=== PATIENT | male | born 1985 | race Caucasian/White ===

== ENCOUNTER 2021-11-12 14:01 | Emergency (ER) | payer SELFPAY ==
[~2021-11-12] VITALS: Ht 172.7 cm; Wt 114.0 kg
[2021-11-12 14:36] LABS: BILIRUBIN,URINE NEGATIVE (NEGATIVE); CLARITY,URINE CLEAR; COLOR,URINE YELLOW; GLUCOSE, URINE (UA) NEGATIVE (NEGATIVE); KETONES,URINE NEGATIVE (NEGATIVE); LEUKOCYTE ESTERASE ,URINE NEGATIVE (NEGATIVE); NITRITE,URINE NEGATIVE (NEGATIVE); PROTEIN,URINE NEGATIVE (NEGATIVE)
[2021-11-12 14:55] LABS: BACTERIA,URINE NEGATIVE /HPF; RBC,URINE 0-2 /HPF; WBC,URINE RARE /HPF
[2021-11-12] MEDS ORDERED: ONDANSETRON 4 MG/2 ML (SDV) Z0FRAN IVP ONE ×2 (15:00→17:00)
[2021-11-12] MEDS ORDERED: fentaNYL INJ 100 MCG/2 ML AMP IVP ONE ×2 (15:00→16:45)
--- NOTE | 2021-11-12 15:18 | Diagnostic Imaging Report ---
EXAMINATION: ABDOMEN/KUB 1VIEW. INDICATION: Flank pain, kidney stone suspected. COMPARISON: None available. TECHNIQUE: AP view of the abdomen. FINDINGS: There is a 6 mm mineralized focus located along the expected course of the mid left ureter just to the left of the L4 vertebral body. No other abnormal soft tissue mineralizations. Nonobstructed bowel gas patterns. A small amount of stool in the ascending colon is likely physiologic. Normal regional skeleton. IMPRESSION: There is a 6 mm mineralization along the expected course of the left ureter which could represent a ureteral stone. Consider CT of the abdomen and pelvis without contrast for further assessment, as deemed clinically indicated. Dictated by: Dictated on workstation # [id number]
--- NOTE | 2021-11-12 15:26 | Diagnostic Imaging Report ---
PROCEDURE: CT urinary tract, rule out kidney stone. TECHNIQUE: Multiple contiguous axial images were obtained through the abdomen and pelvis without the use of intravenous contrast. Auto Exposure Controls were utilized during the CT exam to meet ALARA standards for radiation dose reduction. INDICATION: Left flank pain. Patient does have history of kidney stones. COMPARISON: No prior studies are available for comparison. FINDINGS: Lung bases are clear. The liver and gallbladder are unremarkable. No biliary ductal dilatation is seen. The pancreas and spleen are unremarkable. No adrenal mass is detected. The right kidney is unremarkable. Left kidney is enlarged. There is a moderate left-sided hydroureteronephrosis. There is a stone in the proximal left ureter measuring 7 mm. The ureter distal to this level is normal in caliber. No bladder calculi are seen. Aorta is nonaneurysmal. The small and large bowel loops are normal in caliber. There is no free fluid or fluid collection. The prostate is unremarkable. IMPRESSION: 7 mm proximal left ureteric calculus producing moderate hydroureteronephrosis and left renal enlargement. Dictated by: Dictated on workstation # [id number]
[2021-11-12 15:43] LABS: BASOPHILS # (AUTO) 0.1 10^3/uL (0.0-0.1); BASOPHILS % (AUTO) 1 % (0-10); EOSINOPHILS # (AUTO) 0.1 10^3/uL (0.0-0.3); EOSINOPHILS % (AUTO) 1 % (0-10); HEMATOCRIT 51 % (40-54); HEMOGLOBIN 16.9 g/dL (13.3-17.7); LYMPHOCYTES # (AUTO) 1.9 X 10^3 (1.0-4.0); LYMPHOCYTES % (AUTO) 17 % (12-44); MEAN CORPUSCULAR HEMOGLOBIN 29 pg (25-34); MEAN CORPUSCULAR HGB CONC 33 g/dL (32-36); MEAN CORPUSCULAR VOLUME 88 fL (80-99); MEAN PLATELET VOLUME 10.4 fL (9.0-12.2); MONOCYTES # (AUTO) 0.9 X 10^3 (0.0-1.0); MONOCYTES % (AUTO) 8 % (0-12); NEUTROPHILS % (AUTO) 73 % (42-75); PLATELET COUNT 216 10^3/uL (130-400)
[2021-11-12 15:50] LABS: POTASSIUM 4.4 MMOL/L (3.6-5.0)
[2021-11-12 15:52] LABS: TOTAL PROTEIN 7.6 GM/DL (6.4-8.2)
[2021-11-12 15:54] LABS: BILIRUBIN,TOTAL 0.5 MG/DL (0.1-1.0)
[2021-11-12 15:56] LABS: CREATININE SERUM 1.88 MG/DL (0.60-1.30)
--- NOTE | 2021-11-12 16:02 | ED GU-Male ---
General Chief Complaint: - Reproductive Stated Complaint: BACK/ABD PAIN, N/V, KIDNEY STONES Nursing Triage Note: pt ambulatory to room with pt . pt states he was seen at [facility] on thursday and was diagnosed with a kidney stone. pt states he was sent home with instruction to follow up with urology and has not been able to do so yet. pt was also sent home with nausea and pain meds but he has not been taking them because he states he cannot keep them down. pt is complaining of increasing pain, LLQ pain and vomiting Source: patient Exam Limitations: no limitations History of Present Illness Date Seen by Provider: November 12, 2021 Time Seen by Provider: 15:47 Initial Comments This is a well-appearing 36-year-old male who presented to the ER via POV with his spouse for complaints of left-sided flank pain for the past 3 days. States that he was evaluated and treated at [facility] this past Thursday, he was diagnosed with a 8 mm left kidney stone at that time. States that he was placed on Flomax, Hydrocodone, Zofran, and Naproxen at that time. He was instructed to follow-up with urology in the next few days however if his symptoms worsened he was to present to the ER again. States today he is having difficulty urinating and is only able to dribble small amounts at a time. Also states that he is having persistent pain and is no longer able to keep down his hydrocodone. Denies fever, chills, cough, shortness of breath, chest pain, or diarrhea. Allergies and Home Medications Allergies Coded Allergies: No Known Drug Allergies (Unverified , 11/12/21) Patient Home Medication List Home Medication List Reviewed: Yes Review of Systems Review of Systems Constitutional: see HPI EENTM: no symptoms reported Respiratory: no symptoms reported Cardiovascular: no symptoms reported Gastrointestinal: see HPI Genitourinary: see HPI Musculoskeletal: no symptoms reported Skin: no symptoms reported Psychiatric/Neurological: No Symptoms Reported Endocrine: No Symptoms Reported Hematologic/Lymphatic: No Symptoms Reported Physical Exam Vital Signs Vital Signs - First Documented 11/12/21 14:30 Temp 36.6 Pulse 88 Resp 16 B/P (MAP) 139/95 (110) Pulse Ox 98 Capillary Refill : Height, Weight, BMI Height: '" Weight: lbs. oz. kg; 38.00 BMI Method: General Appearance: WD/WN, no apparent distress HEENT: PERRL/EOMI, normal ENT inspection, TMs normal, pharynx normal Neck: full range of motion, normal inspection Cardiovascular: regular rate, rhythm, no murmur Respiratory: lungs clear, normal breath sounds, no respiratory distress, no accessory muscle use Gastrointestinal: normal bowel sounds, non tender, soft Back: normal inspection, CVA tenderness (L) Extremities: normal range of motion, non-tender, normal inspection Neurologic/Psychiatric: no motor/sensory deficits, alert, normal mood/affect Skin: normal color, warm/dry Progress/Results/Core Measures Suspected Sepsis SIRS Temperature: Pulse: 88 Respiratory Rate: 16 Laboratory Tests 11/12/21 14:42: White Blood Count 11.0 Blood Pressure 139 /95 Mean: 110 Laboratory Tests 11/12/21 14:42: Creatinine 1.88H, Platelet Count 216, Total Bilirubin 0.5 Results/Orders Lab Results Laboratory Tests Test 11/12/21 14:27 11/12/21 14:42 Range/Units Urine Color YELLOW Urine Clarity CLEAR Urine pH 7.0 5-9 Urine Specific Palmer 1.010 L 1.016-1.022 Urine Protein NEGATIVE NEGATIVE Urine Glucose (UA) NEGATIVE NEGATIVE Urine Ketones NEGATIVE NEGATIVE Urine Nitrite NEGATIVE NEGATIVE Urine Bilirubin NEGATIVE NEGATIVE Urine Urobilinogen 0.2 < = 1.0 MG/DL Urine Leukocyte Esterase NEGATIVE NEGATIVE Urine RBC (Auto) 2+ H NEGATIVE Urine RBC 0-2 /HPF Urine WBC RARE /HPF Urine Crystals NONE /LPF Urine Bacteria NEGATIVE /HPF Urine Casts NONE /LPF Urine Mucus NEGATIVE /LPF Urine Culture Indicated NO White Blood Count 11.0 4.3-11.0 10^3/uL Red Blood Count 5.77 H 4.30-5.52 10^6/uL Hemoglobin 16.9 13.3-17.7 g/dL Hematocrit 51 40-54 % Mean Corpuscular Volume 88 80-99 fL Mean Corpuscular Hemoglobin 29 25-34 pg Mean Corpuscular Hemoglobin Concent 33 32-36 g/dL Red Cell Distribution Width 12.7 10.0-14.5 % Platelet Count 216 130-400 10^3/uL Mean Platelet Volume 10.4 9.0-12.2 fL Immature Granulocyte % (Auto) 1 % Neutrophils (%) (Auto) 73 42-75 % Lymphocytes (%) (Auto) 17 12-44 % Monocytes (%) (Auto) 8 0-12 % Eosinophils (%) (Auto) 1 0-10 % Basophils (%) (Auto) 1 0-10 % Neutrophils # (Auto) 8.0 H 1.8-7.8 X 10^3 Lymphocytes # (Auto) 1.9 1.0-4.0 X 10^3 Monocytes # (Auto) 0.9 0.0-1.0 X 10^3 Eosinophils # (Auto) 0.1 0.0-0.3 10^3/uL Basophils # (Auto) 0.1 0.0-0.1 10^3/uL Immature Granulocyte # (Auto) 0.1 0.0-0.1 10^3/uL Sodium Level 139 135-145 MMOL/L Potassium Level 4.4 3.6-5.0 MMOL/L Chloride Level 102 98-107 MMOL/L Carbon Dioxide Level 27 21-32 MMOL/L Anion Gap 10 5-14 MMOL/L Blood Urea Nitrogen 9 7-18 MG/DL Creatinine 1.88 H 0.60-1.30 MG/DL Estimat Glomerular Filtration Rate 47 BUN/Creatinine Ratio 5 Glucose Level 101 70-105 MG/DL Calcium Level 9.0 8.5-10.1 MG/DL Corrected Calcium 9.0 8.5-10.1 MG/DL Total Bilirubin 0.5 0.1-1.0 MG/DL Aspartate Amino Transf (AST/SGOT) 25 5-34 U/L Alanine Aminotransferase (ALT/SGPT) 23 0-55 U/L Alkaline Phosphatase 83 40-136 U/L Total Protein 7.6 6.4-8.2 GM/DL Albumin 4.0 3.2-4.5 GM/DL My Orders Orders - ISA VIERA APRN Ua Culture If Indicated (11/12/21 14:03) Ct Abd/Pelvis Wo(Kidney Stone) (11/12/21 14:44) Abdomen/Kub 1view (11/12/21 14:44) Ed Iv/Invasive Line Start (11/12/21 14:44) Ondansetron Injection (Zofran Injectio (11/12/21 15:00) Fentanyl Inj (Sublimaze Injection) (11/12/21 15:00) Cbc With Automated Diff (11/12/21 15:37) Comprehensive Metabolic Panel (11/12/21 15:37) Post Void Residual Assessment (11/12/21 16:23) Medications Given in ED Current Medications Medications Dose Ordered Sig/Zoraida Route Start Time Stop Time Status Last Admin Dose Admin Fentanyl Citrate 50 mcg ONCE ONCE IVP 11/12/21 15:00 11/12/21 15:01 DC 11/12/21 15:21 50 MCG Ondansetron HCl 4 mg ONCE ONCE IVP 11/12/21 15:00 11/12/21 15:01 DC 11/12/21 15:21 4 MG Vital Signs/I&O 11/12/21 14:30 Temp 36.6 Pulse 88 Resp 16 B/P (MAP) 139/95 (110) Pulse Ox 98 Capillary Refill : Blood Pressure Mean: 110 Diagnostic Imaging Diagonstic Imaging: Xray Comments [facility] [place] [place] NAME: DANIELLE MCDONALD MED REC#: [id number] PT STATUS: REG ER : 1985 PHYSICIAN: ISA VIERA [employer]ER ADMIT DATE: 11/12/21/ER Draft Date of Exam:11/12/21 ABDOMEN/KUB 1VIEW EXAMINATION: ABDOMEN/KUB 1VIEW. INDICATION: Flank pain, kidney stone suspected. COMPARISON: None available. TECHNIQUE: AP view of the abdomen. FINDINGS: There is a 6 mm mineralized focus located along the expected course of the mid left ureter just to the left of the L4 vertebral body. No other abnormal soft tissue mineralizations. Nonobstructed bowel gas patterns. A small amount of stool in the ascending colon is likely physiologic. Normal regional skeleton. IMPRESSION: There is a 6 mm mineralization along the expected course of the left ureter which could represent a ureteral stone. Consider CT of the abdomen and pelvis without contrast for further assessment, as deemed clinically indicated. Dictated on workstation # [id number] Dict: 11/12/21 1509 Trans: 11/12/21 1517 [id number] Interpreted by: BJORN KOENIG MD Electronically signed by: Joseph [facility] [place] [place] NAME: DANIELLE MCDONALD MED REC#: [id number] PT STATUS: REG ER : 1985 PHYSICIAN: ISA VIERA [employer] ADMIT DATE: 11/12/21/ER Signed Date of Exam:11/12/21 CT ABD/PELVIS WO(KIDNEY STONE) PROCEDURE: CT urinary tract, rule out kidney stone. TECHNIQUE: Multiple contiguous axial images were obtained through the abdomen and pelvis without the use of intravenous contrast. Auto Exposure Controls were utilized during the CT exam to meet ALARA standards for radiation dose reduction. INDICATION: Left flank pain. Patient does have history of kidney stones. COMPARISON: No prior studies are available for comparison. FINDINGS: Lung bases are clear. The liver and gallbladder are unremarkable. No biliary ductal dilatation is seen. The pancreas and spleen are unremarkable. No adrenal mass is detected. The right kidney is unremarkable. Left kidney is enlarged. There is a moderate left-sided hydroureteronephrosis. There is a stone in the proximal left ureter measuring 7 mm. The ureter distal to this level is normal in caliber. No bladder calculi are seen. Aorta is nonaneurysmal. The small and large bowel loops are normal in caliber. There is no free fluid or fluid collection. The prostate is unremarkable. IMPRESSION: 7 mm proximal left ureteric calculus producing moderate hydroureteronephrosis and left renal enlargement. Dictated by: Dictated on workstation # [id number] Dict: 11/12/21 1519 Trans: 11/12/21 1557 [id number] Interpreted by: EDD MONET MD Electronically signed by: EDD MONET MD 11/12/21 1557 Departure Impression Primary Impression: Left ureteral calculus Additional Impression: Hydronephrosis of left kidney Disposition: XF SHT-TRM HOSP Condition: Stable Transfer Transfer Reason: Exceeds level of care (No urology services ) Transfer Facility: [facility] Method of Transfer: EMS Departure-Patient Inst. Decision time for Depature: 16:31 Referrals: [facility] (PCP) Primary Care Physician BEATRICE FISHER DO (Family) Primary Care Physician Patient Instructions: Kidney Stone, Adult ED Add. Discharge Instructions: Plan: 1. Follow up with Urology. Your phone number was given to Urology at [facility]. Call to schedule appointment. 2. Drink plenty of fluids to pass your stone. 3. Continue your home medications. 4. Return for any new, concerning, or worsening symptoms. All discharge instructions reviewed with patient and/or family. Voiced understanding. ISA VIERA [employer]ER November 12, 2021 16:02
[2021-11-12 17:20] VITALS: BP 135/91
== END 2021-11-12 17:25 | disposition short-term general hospital (02) ==
LOC: ER 14:04
DX: N13.2 Hydronephrosis with renal and ureteral calculous obstruction (principal)
CPT/HCPCS: 36415; 74018; 74176; 80053; 81000; 85025

== ENCOUNTER 2022-01-09 22:12 | Emergency (ER) | payer BC ==
[~2022-01-09] VITALS: Ht 170.1 cm; Wt 112.4 kg
--- NOTE | 2022-01-09 22:35 | ED General ---
General Chief Complaint: - Reproductive Stated Complaint: PAIN LEFT KIDNEY History of Present Illness Date Seen by Provider: Jan 09, 2022 Time Seen by Provider: 22:35 Initial Comments 36-year-old male with past medical history of HTN/kidney stones for which he just had a ureteroscopy with stent placement and stone removal this past Thursday, is here with complaints of sudden onset of pain in his left lower quadrant and suprapubic area today evening. Patient had dinner at [employer] and that was his last meal. Denies fever, chest pain, palpitation, diaphoresis, diarrhea, headache, dizziness. Patient had associated nausea and vomiting. In the ER patient's pain has subsided and is not as severe. Denies any trauma or injury. Patient is on hydromorphone every 4 hours as needed for pain post procedure. Patient has not been drinking much water and states that his urine is very dark in color. Allergies and Home Medications Allergies Coded Allergies: No Known Drug Allergies (Unverified , 11/12/21) Patient Home Medication List Home Medication List Reviewed: Yes Review of Systems Review of Systems Constitutional: no symptoms reported EENTM: no symptoms reported Respiratory: no symptoms reported Cardiovascular: no symptoms reported Gastrointestinal: LLQ, nausea, other (suprapubic pain) Genitourinary: hematuria Musculoskeletal: no symptoms reported Skin: no symptoms reported Psychiatric/Neurological: No Symptoms Reported Hematologic/Lymphatic: No Symptoms Reported Immunological/Allergic: no symptoms reported Past Nsjhevm-Uxjlsy-Tjzqxp Hx Patient Social History Tobacco Use?: Yes Tobacco type used: Cigarettes Smoking Status: Current Everyday Smoker Use of E-Cig and/or Vaping dev: No Substance use?: No Alcohol Use?: No Pt feels they are or have been: No Immunizations Up To Date Influenza Vaccine Up-to-Date: No; Not Current Physical Exam Vital Signs Vital Signs - First Documented 01/09/22 22:26 Temp 37.2 Pulse 82 Resp 18 B/P (MAP) 144/99 (114) Pulse Ox 98 O2 Delivery Room Air Capillary Refill : Height, Weight, BMI Height: '" Weight: lbs. oz. kg; 38.00 BMI Method: General Appearance: No Apparent Distress, WD/WN HEENT: PERRL/EOMI Neck: Full Range of Motion Respiratory: Lungs Clear, Normal Breath Sounds, No Accessory Muscle Use Gastrointestinal: Normal Bowel Sounds, No Organomegaly, Soft, Distended (slightly), Tenderness (in suprapubic area and LLQ) Back: Normal Inspection, No CVA Tenderness, No Vertebral Tenderness Neurologic/Psychiatric: Alert, Oriented x3, No Motor/Sensory Deficits, Normal Mood/Affect Progress/Results/Core Measures Suspected Sepsis SIRS Temperature: Pulse: Respiratory Rate: Laboratory Tests 01/09/22 23:00: White Blood Count 12.1H Blood Pressure / Mean: Laboratory Tests 01/09/22 23:00: Creatinine 1.22, Platelet Count 237, Total Bilirubin 0.4 Results/Orders Lab Results Laboratory Tests Test 01/09/22 22:24 01/09/22 23:00 Range/Units Urine Color BROWN H Urine Clarity CLOUDY Urine pH 6.5 5-9 Urine Specific Stella >=1.030 1.016-1.022 Urine Protein 3+ H NEGATIVE Urine Glucose (UA) NEGATIVE NEGATIVE Urine Ketones NEGATIVE NEGATIVE Urine Nitrite NEGATIVE NEGATIVE Urine Bilirubin 1+ H NEGATIVE Urine Urobilinogen 1.0 < = 1.0 MG/DL Urine Leukocyte Esterase 2+ H NEGATIVE Urine RBC (Auto) 3+ H NEGATIVE Urine RBC TNTC H /HPF Urine WBC 10-25 H /HPF Urine Squamous Epithelial Cells RARE /HPF Urine Crystals PRESENT H /LPF Urine Calcium Oxalate Crystals RARE H /LPF Urine Bacteria FEW H /HPF Urine Casts NONE /LPF Urine Mucus NEGATIVE /LPF Urine Culture Indicated YES Urine Opiates Screen POSITIVE H NEGATIVE Urine Oxycodone Screen NEGATIVE NEGATIVE Urine Methadone Screen NEGATIVE NEGATIVE Urine Propoxyphene Screen NEGATIVE NEGATIVE Urine Barbiturates Screen NEGATIVE NEGATIVE Ur Tricyclic Antidepressants Screen NEGATIVE NEGATIVE Urine Phencyclidine Screen NEGATIVE NEGATIVE Urine Amphetamines Screen NEGATIVE NEGATIVE Urine Methamphetamines Screen NEGATIVE NEGATIVE Urine Benzodiazepines Screen NEGATIVE NEGATIVE Urine Cocaine Screen NEGATIVE NEGATIVE Urine Cannabinoids Screen NEGATIVE NEGATIVE White Blood Count 12.1 H 4.3-11.0 10^3/uL Red Blood Count 5.61 H 4.30-5.52 10^6/uL Hemoglobin 16.4 13.3-17.7 g/dL Hematocrit 48 40-54 % Mean Corpuscular Volume 85 80-99 fL Mean Corpuscular Hemoglobin 29 25-34 pg Mean Corpuscular Hemoglobin Concent 34 32-36 g/dL Red Cell Distribution Width 13.1 10.0-14.5 % Platelet Count 237 130-400 10^3/uL Mean Platelet Volume 9.7 9.0-12.2 fL Immature Granulocyte % (Auto) 1 % Neutrophils (%) (Auto) 60 42-75 % Lymphocytes (%) (Auto) 31 12-44 % Monocytes (%) (Auto) 6 0-12 % Eosinophils (%) (Auto) 2 0-10 % Basophils (%) (Auto) 1 0-10 % Neutrophils # (Auto) 7.3 1.8-7.8 10^3/uL Lymphocytes # (Auto) 3.7 1.0-4.0 10^3/uL Monocytes # (Auto) 0.7 0.0-1.0 10^3/uL Eosinophils # (Auto) 0.2 0.0-0.3 10^3/uL Basophils # (Auto) 0.1 0.0-0.1 10^3/uL Immature Granulocyte # (Auto) 0.1 0.0-0.1 10^3/uL Sodium Level 139 135-145 MMOL/L Potassium Level 3.6 3.6-5.0 MMOL/L Chloride Level 102 98-107 MMOL/L Carbon Dioxide Level 24 21-32 MMOL/L Anion Gap 13 5-14 MMOL/L Blood Urea Nitrogen 14 7-18 MG/DL Creatinine 1.22 0.60-1.30 MG/DL Estimat Glomerular Filtration Rate 79 BUN/Creatinine Ratio 11 Glucose Level 124 H 70-105 MG/DL Calcium Level 8.9 8.5-10.1 MG/DL Corrected Calcium 9.1 8.5-10.1 MG/DL Magnesium Level 2.0 1.6-2.4 MG/DL Total Bilirubin 0.4 0.1-1.0 MG/DL Aspartate Amino Transf (AST/SGOT) 17 5-34 U/L Alanine Aminotransferase (ALT/SGPT) 23 0-55 U/L Alkaline Phosphatase 77 40-136 U/L Total Protein 7.0 6.4-8.2 GM/DL Albumin 3.8 3.2-4.5 GM/DL My Orders Orders - STEPHON TRUONG MD Cbc With Automated Diff (01/09/22 22:46) Comprehensive Metabolic Panel (01/09/22 22:46) Drug Screen Stat (Urine) (01/09/22 22:46) Magnesium (01/09/22 22:46) Ua Culture If Indicated (01/09/22 22:46) Ct Abdomen/Pelvis Wo (01/09/22 22:46) Ketorolac Injection (Toradol Injection) (01/09/22 22:47) Ed Iv/Invasive Line Start (01/09/22 22:47) Ns Iv 1000 Ml (Sodium Chloride 0.9%) (01/09/22 23:00) Urine Culture (01/09/22 22:24) Vital Signs/I&O 01/09/22 22:26 Temp 37.2 Pulse 82 Resp 18 B/P (MAP) 144/99 (114) Pulse Ox 98 O2 Delivery Room Air Capillary Refill : Progress Note : Progress Note 1. ACUTE CYSTITIS : - CT ABD: Left ureteral stent is in place. The left ureter is minimally dilated with inflammatory changes. No stone is identified. This may be post surgical inflammation or infection. - UA is positive for leukocyte esterase, WBCs, and bacteria - WBC is 12.1 - CMP normal - NS IVF bolus STAT - Toradol 15mg - Ceftriaxone 1gm iv STAT - Prescription given for Cefpodoxime 100mg bid for 7 days - Advised pt to call his Urologist at [place] first thing in the morning. -The patient was seen in the ED, and treated appropriately to presentation at a specific point in time. Patient is informed that there is a possibility that disease and illness can evolve and change in acuity rapidly or slowly after patient is discharged from the ER. Precautionary advice given to the patient for immediate return to ER if symptoms worsen or do not resolve, and to seek emergency care sooner rather than later. Pt also advised on the importance of PCP follow up and compliance with management and follow up plan with PCP and/or specialist, as this is part of the management plan. Pt verbally expressed understanding. Departure Impression Primary Impression: Acute cystitis with hematuria Disposition: HOME, SELF-CARE Condition: Improved Departure-Patient Inst. Referrals: [facility] (PCP) Primary Care Physician BEATRICE FISHER DO (Family) Primary Care Physician Patient Instructions: Urinary Tract Infection, Adult (DC) Add. Discharge Instructions: - Prescription given for Cefpodoxime 100mg bid for 7 days - Call Urology clinic in the morning for appointment All discharge instructions reviewed with patient and/or family. Voiced understanding. Scripts Cefpodoxime Proxetil (Cefpodoxime Proxetil) 100 Mg Tablet 100 MG PO BID for 7 Days, #14 TAB Prov: STEPHON TRUONG MD 01/10/22 STEPHON TRUONG MD Jan 09, 2022 22:35
[2022-01-09] MEDS ORDERED: KETOROLAC 30 MG/ML VIAL IVP STA (22:47)
[2022-01-09 22:59] LABS: BILIRUBIN,URINE 1+ (NEGATIVE); CLARITY,URINE CLOUDY; COLOR,URINE BROWN; GLUCOSE, URINE (UA) NEGATIVE (NEGATIVE); KETONES,URINE NEGATIVE (NEGATIVE); LEUKOCYTE ESTERASE ,URINE 2+ (NEGATIVE); NITRITE,URINE NEGATIVE (NEGATIVE); PH,URINE 6.5 (5-9); PROTEIN,URINE 3+ (NEGATIVE)
[2022-01-09] MEDS ORDERED: NS IV 1000 ML 1,000 ML IV SCH (23:00)
[2022-01-09 23:09] LABS: BASOPHILS # (AUTO) 0.1 10^3/uL (0.0-0.1); BASOPHILS % (AUTO) 1 % (0-10); EOSINOPHILS # (AUTO) 0.2 10^3/uL (0.0-0.3); EOSINOPHILS % (AUTO) 2 % (0-10); HEMATOCRIT 48 % (40-54); HEMOGLOBIN 16.4 g/dL (13.3-17.7); LYMPHOCYTES # (AUTO) 3.7 10^3/uL (1.0-4.0); LYMPHOCYTES % (AUTO) 31 % (12-44); MEAN CORPUSCULAR HEMOGLOBIN 29 pg (25-34); MEAN CORPUSCULAR HGB CONC 34 g/dL (32-36); MEAN CORPUSCULAR VOLUME 85 fL (80-99); MEAN PLATELET VOLUME 9.7 fL (9.0-12.2); MONOCYTES # (AUTO) 0.7 10^3/uL (0.0-1.0); MONOCYTES % (AUTO) 6 % (0-12); NEUTROPHILS # (AUTO) 7.3 10^3/uL (1.8-7.8); NEUTROPHILS % (AUTO) 60 % (42-75); PLATELET COUNT 237 10^3/uL (130-400); WHITE BLOOD COUNT 12.1 10^3/uL (4.3-11.0)
[2022-01-09 23:13] LABS: AMPHETAMINE SCREEN, URINE NEGATIVE (NEGATIVE); BARBITURATE SCREEN URINE NEGATIVE (NEGATIVE); BENZODIAZEPINES SCREEN URINE NEGATIVE (NEGATIVE); CANNABINOID SCREEN, URINE NEGATIVE (NEGATIVE); COCAINE SCREEN URINE NEGATIVE (NEGATIVE); METHADONE STAT NEGATIVE (NEGATIVE); OPIATE SCREEN URINE POSITIVE (NEGATIVE); OXYCODONE STAT NEGATIVE (NEGATIVE); PROPOXYPHENE STAT NEGATIVE (NEGATIVE); TRICYCLIC ANTIDEPRESSANTS SCRE NEGATIVE (NEGATIVE)
[2022-01-09 23:16] LABS: BACTERIA,URINE FEW /HPF; CALCIUM OXALATE CRYSTALS,UR RARE /LPF; RBC,URINE TNTC /HPF; SQUAMOUS EPITHELIAL CELL,UR RARE /HPF
[2022-01-09 23:18] LABS: ALBUMIN 3.8 GM/DL (3.2-4.5); POTASSIUM 3.6 MMOL/L (3.6-5.0)
[2022-01-09 23:20] LABS: CALCIUM 8.9 MG/DL (8.5-10.1)
[2022-01-09 23:23] LABS: BILIRUBIN,TOTAL 0.4 MG/DL (0.1-1.0)
[2022-01-09 23:24] LABS: CREATININE SERUM 1.22 MG/DL (0.60-1.30)
[2022-01-10] MEDS ORDERED: cefTRIAXone 1 GM PRE-MIX 50 ML IV STA (01:28)
[2022-01-10] MEDS ORDERED: cefTRIAXone 1 GM PRE-MIX 50 ML IV ONE (01:33)
[2022-01-10] MEDS ORDERED: CEFP100T2 PO (01:36)
[2022-01-10 01:37] VITALS: BP 131/88
--- NOTE | 2022-01-10 05:40 | Diagnostic Imaging Report ---
PROCEDURE: CT abdomen and pelvis without contrast. TECHNIQUE: Multiple contiguous axial images were obtained through the abdomen and pelvis without the use of intravenous contrast. Auto Exposure Controls were utilized during the CT exam to meet ALARA standards for radiation dose reduction. INDICATION: 36-year-old male with generalized abdominal pain, history of left ureteral stent. COMPARISONS: 11/12/2021 FINDINGS: Lung bases are essentially clear. Cardiac contour is normal. Liver shows uniform attenuation. Gallbladder is nondistended. Spleen and GE junction are normal. Stomach and duodenal sweep are unremarkable. Pancreas shows sharp margins. Adrenals are normal. Kidneys appear normal in size, position and contour. There is a double-J left ureteral stent. There is some minimal left ureteral stranding. Bladder is nondistended. Nonopacified loops of small bowel are unremarkable. Large bowel contains fecal material and gas. The appendix is surgically absent. Aortoiliac and femoral arteries show normal caliber. Bone windows show no overall gross abnormalities. IMPRESSION: 1. A double-J left ureteral stent noted. 2. There is no evidence of cholecystitis or obstructive uropathy. There is some stranding along the left ureter without hydroureter. No definite renal or ureteral calculi seen. 3. Appendix is surgically absent. No areas of peritoneal inflammation seen. Additional nonemergent findings as described above. Agree with [facility] report. Dictated by: Dictated on workstation # [id number]
== END 2022-01-10 01:45 | disposition home or self-care (01) ==
LOC: EDUNIT# 22:12 → ER 22:15
DX: N30.01 Acute cystitis with hematuria (principal); F17.210 Nicotine dependence, cigarettes, uncomplicated; Z87.442 Personal history of urinary calculi; Z96.0 Presence of urogenital implants; Z98.890 Other specified postprocedural states; Z28.310 Unvaccinated for COVID-19
CPT/HCPCS: 36415; 74176; 80053; 80306; 81000; 83735; 85025; 87088

== ENCOUNTER 2022-08-13 10:47 | Emergency (ER) | payer SELFPAY ==
[~2022-08-13] VITALS: Ht 172.7 cm; Wt 123.0 kg
[~2022-08-13 10:47] MED LIST: CEFP100T2 PO
[2022-08-13] MEDS ORDERED: ASPIRIN 81 MG CHEW (CHILDREN'S ASA) PO ONE (11:30)
[2022-08-13 11:35] LABS: BASOPHILS # (AUTO) 0.1 10^3/uL (0.0-0.1); BASOPHILS % (AUTO) 1 % (0-10); EOSINOPHILS # (AUTO) 0.1 10^3/uL (0.0-0.3); EOSINOPHILS % (AUTO) 1 % (0-10); HEMATOCRIT 51 % (40-54); HEMOGLOBIN 17.4 g/dL (13.3-17.7); LYMPHOCYTES # (AUTO) 3.3 10^3/uL (1.0-4.0); LYMPHOCYTES % (AUTO) 30 % (12-44); MEAN CORPUSCULAR HEMOGLOBIN 30 pg (25-34); MEAN CORPUSCULAR HGB CONC 35 g/dL (32-36); MEAN CORPUSCULAR VOLUME 86 fL (80-99); MEAN PLATELET VOLUME 9.8 fL (9.0-12.2); MONOCYTES # (AUTO) 0.7 10^3/uL (0.0-1.0); MONOCYTES % (AUTO) 7 % (0-12); NEUTROPHILS # (AUTO) 6.8 10^3/uL (1.8-7.8); NEUTROPHILS % (AUTO) 61 % (42-75); PLATELET COUNT 201 10^3/uL (130-400); WHITE BLOOD COUNT 11.1 10^3/uL (4.3-11.0)
[2022-08-13 11:45] LABS: POTASSIUM 3.7 MMOL/L (3.6-5.0)
[2022-08-13 11:46] LABS: CALCIUM 8.8 MG/DL (8.5-10.1)
--- NOTE | 2022-08-13 11:46 | ED Chest Pain ---
General Chief Complaint: General Problems/Pain Stated Complaint: LIGHTHEADED | HIGH BLOOD PRESSURE Nursing Triage Note: PT AMB TO TRIAGE WITH C/O A "BLACK OUT" SPELL AT WORK AROUND 0900 THIS MORNING. PT WAS WALKING AND FELT HIS EYES GO BLACK AND FELL AGAINST THE WALL. PT STATES THIS IS NOT THE FIRST TIME THIS HAS HAPPENED Source: patient Exam Limitations: no limitations (TOYA NICOLAS) History of Present Illness Date Seen by Provider: Aug 13, 2022 Time Seen by Provider: 11:43 Initial Comments Patient is a 37-year-old male with a history of high cholesterol, smoking, family cardiac history presents the ED with chest heaviness and a near syncopal episode. Patient states around 9:00 this morning he was at work talking to someone when he blacked out but denies complete loss of consciousness. This lasted for 30 seconds. He had a pulsating frontal head pain with chest heaviness rates 6 out of 10. No radiation of pain. History of similar chest pain over the past 7 months. head pain has improved. Continue having chest heaviness at this time. Had some associated shortness of breath. Similar episode 6 to 7 months ago. He scheduled for a stress test next week. No known history of coronary artery disease. Denies COPD or asthma. No recent travels or surgeries. Denies of any blood disorders. Strong family cardiac history. He has had a cough for the past 2 weeks with some intermittent shortness of breath. Denies of any visual changes, unilateral muscle weakness or sensory changes, Hubert pain, vomiting, diarrhea, fever, chill. He reports chronic numbness and tingling in his hands. Works on machinery (TOYA NICOLAS) Allergies and Home Medications Allergies Coded Allergies: No Known Drug Allergies (Unverified , 11/12/21) Patient Home Medication List Home Medication List Reviewed: Yes (TOYA NICOLAS) Cefpodoxime Proxetil (Cefpodoxime Proxetil) 100 Mg Tablet, 100 MG PO BID Prescribed by: STEPHON TRUONG MD on 01/10/22 9656 Review of Systems Review of Systems Constitutional: No chills, No diaphoresis, No fever, No malaise EENTM: No Blurred Vision, No Eye Pain Respiratory: Cough, Shortness of Air Cardiovascular: Chest Pain; Denies Edema, Denies Irregular Heart Rate Gastrointestinal: Denies Abdominal Pain, Denies Blood Streaked Stools, Denies Diarrhea, Denies Nausea, Denies Vomiting Genitourinary: Denies Burning Musculoskeletal: No back pain, No joint pain Skin: No change in color, No change in hair/nails Psychiatric/Neurological: Headache; Denies Numbness, Denies Tremors, Denies Weakness (TOYA NICOLAS) All Other Systems Reviewed Negative Unless Noted: Yes (TOYA NICOLAS) Past Rhcejng-Fircpa-Ajozjt Hx Patient Social History Tobacco Use?: Yes Tobacco type used: Cigarettes Substance use?: No Alcohol Use?: No Pt feels they are or have been: No (TOYA NICOLAS) Immunizations Up To Date Influenza Vaccine Up-to-Date: No; Not Current (TOYA NICOLAS) Past Medical History Surgery/Hospitalization HX: HTN APPY (TOYA NICOLAS) Physical Exam Vital Signs Vital Signs - First Documented 08/13/22 11:09 Temp 36.8 Pulse 88 Resp 18 B/P (MAP) 137/80 (99) (DIEGO RODARTE MD) Vital Signs Capillary Refill : (TOYA NICOLAS) Height, Weight, BMI Height: '" Weight: lbs. oz. kg; 41.00 BMI Method: General Appearance: No No Apparent Distress, No WD/WN HEENT: No PERRL/EOMI, No TMs Normal, No Normal ENT Inspection, No Pharynx Normal Neck: No Full Range of Motion, No Normal Inspection, No Non Tender, No Supple Respiratory: No Chest Non Tender, No Lungs Clear, No Normal Breath Sounds, No No Accessory Muscle Use, No No Respiratory Distress Cardiovascular: Regular Rate, Rhythm, No Edema, No Gallop, No JVD, No Murmur Gastrointestinal: Normal Bowel Sounds, No Organomegaly, No Pulsatile Mass, Non Tender Extremity: Normal Capillary Refill, Normal Inspection, Normal Range of Motion, Non Tender Neurologic/Psychiatric: Alert, Oriented x3, No Motor/Sensory Deficits, Normal Mood/Affect Skin: Normal Color (TOYA NICOLAS) Progress/Results/Core Measures Results/Orders Lab Results Laboratory Tests Test 08/13/22 11:26 08/13/22 14:49 Range/Units White Blood Count 11.1 H 4.3-11.0 10^3/uL Red Blood Count 5.90 H 4.30-5.52 10^6/uL Hemoglobin 17.4 13.3-17.7 g/dL Hematocrit 51 40-54 % Mean Corpuscular Volume 86 80-99 fL Mean Corpuscular Hemoglobin 30 25-34 pg Mean Corpuscular Hemoglobin Concent 35 32-36 g/dL Red Cell Distribution Width 12.8 10.0-14.5 % Platelet Count 201 130-400 10^3/uL Mean Platelet Volume 9.8 9.0-12.2 fL Immature Granulocyte % (Auto) 1 % Neutrophils (%) (Auto) 61 42-75 % Lymphocytes (%) (Auto) 30 12-44 % Monocytes (%) (Auto) 7 0-12 % Eosinophils (%) (Auto) 1 0-10 % Basophils (%) (Auto) 1 0-10 % Neutrophils # (Auto) 6.8 1.8-7.8 10^3/uL Lymphocytes # (Auto) 3.3 1.0-4.0 10^3/uL Monocytes # (Auto) 0.7 0.0-1.0 10^3/uL Eosinophils # (Auto) 0.1 0.0-0.3 10^3/uL Basophils # (Auto) 0.1 0.0-0.1 10^3/uL Immature Granulocyte # (Auto) 0.1 0.0-0.1 10^3/uL Prothrombin Time 13.2 12.2-14.7 SEC INR Comment 1.0 0.8-1.4 Activated Partial Thromboplast Time 36 H 24-35 SEC Sodium Level 137 135-145 MMOL/L Potassium Level 3.7 3.6-5.0 MMOL/L Chloride Level 103 98-107 MMOL/L Carbon Dioxide Level 25 21-32 MMOL/L Anion Gap 9 5-14 MMOL/L Blood Urea Nitrogen 7 7-18 MG/DL Creatinine 1.01 0.60-1.30 MG/DL Estimat Glomerular Filtration Rate 98 BUN/Creatinine Ratio 7 Glucose Level 95 70-105 MG/DL Calcium Level 8.8 8.5-10.1 MG/DL Corrected Calcium 8.8 8.5-10.1 MG/DL Magnesium Level 2.0 1.6-2.4 MG/DL Total Bilirubin 0.4 0.1-1.0 MG/DL Aspartate Amino Transf (AST/SGOT) 27 5-34 U/L Alanine Aminotransferase (ALT/SGPT) 35 0-55 U/L Alkaline Phosphatase 77 40-136 U/L Myoglobin 97.0 H 10.0-92.0 NG/ML Troponin I < 0.028 < 0.028 <0.028 NG/ML Total Protein 7.6 6.4-8.2 GM/DL Albumin 4.0 3.2-4.5 GM/DL Lipase 70 8-78 U/L (DIEGO RODARTE MD) My Orders Orders - DIEGO RODARTE MD Ekg Tracing (08/13/22 11:23) (DIEGO RODARTE MD) Medications Given in ED Current Medications Medications Dose Ordered Sig/Zoraida Route Start Time Stop Time Status Last Admin Dose Admin Aspirin 324 mg ONCE ONCE PO 08/13/22 11:30 08/13/22 11:31 DC 08/13/22 11:35 243 MG (DIEGO RODARTE MD) Vital Signs/I&O 08/13/22 08/13/22 11:09 15:18 Temp 36.8 36.8 Pulse 88 80 Resp 18 18 B/P (MAP) 137/80 (99) 124/76 (DIEGO RODARTE MD) Blood Pressure Mean: 99 Departure Communication (PCP) Patient with a near syncopal episode. Denied complete loss of consciousness. Similar episode 6 to 7 months ago. Family cardiac history. History of high cholesterol and smoking. No known history of coronary artery disease. EKG showed normal sinus rhythm without evidence of A-fib, a flutter, WPW, Brugada syndrome. Patient reports chest pressure. Was given full aspirin with improvement of pain. He does take a baby aspirin daily. Initial lab work was otherwise unremarkable. Initial troponin was negative. Neurologically intact without red flag findings. Patient currently asymptomatic. Patient is able to ambulate without feeling of having a syncopal episode. Recommend 3-hour troponin which was negative. Patient remained asymptomatic here. Discussed admission versus outpatient discharge. He states he has a follow-up with a stress test next week. I do think this is reasonable however if he continue having similar episodes he will need to return for further evaluation. Unclear if this is a cardiac in nature however with a strong family history I recommended further evaluation. Continue with baby aspirin. Vital signs stable (TOYA NICOLAS) Impression Primary Impression: Chest pain Disposition: 01 HOME, SELF-CARE Condition: Stable Departure-Patient Inst. Decision time for Depature: 15:14 (TOYA NICOLAS) Referrals: [facility] [place] Primary Care Physician BEATRICE FISHER DO (Family) Primary Care Physician Patient Instructions: Chest Pain, Adult ED Add. Discharge Instructions: Continue monitoring. May continue with 1 baby aspirin daily. Follow-up with your stress test. If any worsening symptoms return back to ED. All discharge instructions reviewed with patient and/or family. Voiced understanding. Work/School Note: Work Release Form Date Seen in the Emergency Department: Aug 13, 2022 Return to Work: Aug 15, 2022 ATTENDING PHYSICIAN NOTE: I was physically present as attending physician in the emergency department during the care of this patient, but I was not directly involved in the decision making or delivery of care for this patient. (DIEGO RODARTE MD) TOYA NICOLAS Aug 13, 2022 11:46 DIEGO RODARTE MD Aug 13, 2022 20:54
[2022-08-13 11:47] LABS: TOTAL PROTEIN 7.6 GM/DL (6.4-8.2)
[2022-08-13 11:48] LABS: PROTHROMBIN TIME PATIENT 13.2 SEC (12.2-14.7)
[2022-08-13 11:49] LABS: BILIRUBIN,TOTAL 0.4 MG/DL (0.1-1.0)
[2022-08-13 11:51] LABS: CREATININE SERUM 1.01 MG/DL (0.60-1.30)
--- NOTE | 2022-08-13 11:55 | Diagnostic Imaging Report ---
EXAMINATION: Chest radiograph, portable AP view. DATE: 08/13/2022 11:37 AM INDICATION: 37-year-old male, chest pain. COMPARISON: None. FINDINGS: Heart size and mediastinal contours are unremarkable. There is no identified pneumothorax. There is no large pleural effusion. There is no identified focal airspace consolidation. IMPRESSION: 1. No identified acute cardiopulmonary abnormality. Dictated by: Dictated on workstation # [id number]
[2022-08-13 15:18] VITALS: BP 124/76
== END 2022-08-13 15:21 | disposition home or self-care (01) ==
LOC: EDUNIT# 10:47 → ER 10:50
DX: R07.89 Other chest pain (principal); R55 Syncope and collapse; F17.210 Nicotine dependence, cigarettes, uncomplicated; Z79.82 Long term (current) use of aspirin; Z28.310 Unvaccinated for COVID-19
CPT/HCPCS: 36415; 71045; 80053; 83690; 83735; 83874; 84484; 85025; 85610; 85730; 93005; 93041

== ENCOUNTER 2023-04-23 03:34 | Emergency (ER) | payer OTHER ==
[~2023-04-23] VITALS: Ht 175.2 cm; Wt 138.6 kg
--- NOTE | 2023-04-23 04:36 | ED Neurological Problem ---
General Chief Complaint: Head/Cervical Problems Stated Complaint: MIGRAINE/NAUSEA Nursing Triage Note: AMBULATORY TO ROOM 5 WITH C/O LEFT SIDE HEADACHE WITH TINGLING SENSATION RADIATING TO NECK. PATIENT DID NOT TAKE HTN MEDICATION YESTERDAY. Source: patient, family Exam Limitations: no limitations (DIEGO COTO MD) History of Present Illness Date Seen by Provider: Apr 23, 2023 Time Seen by Provider: 03:53 Initial Comments 38-year-old gentleman presents to the emergency room after he woke with a pulsating headache on the left side of his head. He noted dizziness upon standing which is primarily described as a disequilibrium that disrupted his walking. He felt like the left side of his body was "not attached." He noted his blood pressure at home to be 149/96. He was nauseated without vomiting. He took aspirin 162 mg, Tylenol x2, and ibuprofen x2. Symptoms have largely subsided now at this time. He describes a paresthesia-like pain radiating into his left arm and neck. He does not specifically describe muscle weakness this time but felt like he may have been weak on the left side at onset. He takes multiple medications including amlodipine, atorvastatin, amitriptyline, aspirin, and Lasix. He did not take any of his medications yesterday. He states his speech was slow at the time but he did not have any expressive or receptive aphasia. He now describes a vague tingly sensation of the left arm and face. (DIEGO COTO MD) Allergies and Home Medications Allergies Coded Allergies: No Known Drug Allergies (Unverified , 11/12/21) Patient Home Medication List Home Medication List Reviewed: Yes (DIEGO COTO MD) Cefpodoxime Proxetil (Cefpodoxime Proxetil) 100 Mg Tablet, 100 MG PO BID Prescribed by: STEPHON TRUONG MD on 01/10/22 4435 Review of Systems Review of Systems Constitutional: no symptoms reported Eyes: No Symptoms Reported Ears, Nose, Mouth, Throat: no symptoms reported Respiratory: no symptoms reported Cardiovascular: see HPI Gastrointestinal: no symptoms reported Genitourinary: no symptoms reported Musculoskeletal: no symptoms reported Skin: no symptoms reported Psychiatric/Neurological: See HPI Endocrine: No Symptoms Reported Hematologic/Lymphatic: No Symptoms Reported (DIEGO COTO MD) Past Znymjzh-Nplkff-Mwvgxo Hx Patient Social History Tobacco Use?: No Use of E-Cig and/or Vaping dev: Yes E-Cig or Vaping type used: Nicotine Substance use?: No Alcohol Use?: No (DIEGO COTO MD) Immunizations Up To Date Influenza Vaccine Up-to-Date: No; Not Current First/Initial COVID19 Vaccinat: N/A (DIEGO COTO MD) Past Medical History Surgery/Hospitalization HX: HTN APPY Surgeries: Yes Appendectomy, Renal (Kidney stone removed) Respiratory: Yes Asthma, Sleep Apnea Cardiac: Yes High Cholesterol, Hypertension Neurological: No Genitourinary: Yes Kidney Stones Gastrointestinal: No Musculoskeletal: No Endocrine: No HEENT: No Cancer: No Psychosocial: No Integumentary: No (DIEGO COTO MD) Physical Exam Vital Signs Vital Signs - First Documented 04/23/23 04:07 Temp 36.8 Pulse 93 Resp 22 B/P (MAP) 148/109 (122) Pulse Ox 98 O2 Delivery Room Air (STRICKLAND,BJORN L DO) Vital Signs Capillary Refill : Less Than 3 Seconds (DIEGO COTO MD) Height, Weight, BMI Height: '" Weight: lbs. oz. 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, no motor/sensory deficits, al ert, normal mood/affect, oriented x 3 Crainal Nerves: normal hearing, normal speech, PERRL Coordination/Gait: normal finger to nose, normal gait Motor/Sensory: no motor deficit, no sensory deficit, no pronator drift Skin: normal color, warm/dry (DIEGO COTO MD) Progress/Results/Core Measures Results/Orders Lab Results Laboratory Tests Test 04/23/23 04:38 04/23/23 07:05 Range/Units White Blood Count 9.6 4.3-11.0 10^3/uL Red Blood Count 5.44 4.30-5.52 10^6/uL Hemoglobin 15.7 13.3-17.7 g/dL Hematocrit 47 40-54 % Mean Corpuscular Volume 87 80-99 fL Mean Corpuscular Hemoglobin 29 25-34 pg Mean Corpuscular Hemoglobin Concent 33 32-36 g/dL Red Cell Distribution Width 12.8 10.0-14.5 % Platelet Count 193 130-400 10^3/uL Mean Platelet Volume 10.0 9.0-12.2 fL Immature Granulocyte % (Auto) 0 % Neutrophils (%) (Auto) 55 42-75 % Lymphocytes (%) (Auto) 35 12-44 % Monocytes (%) (Auto) 8 0-12 % Eosinophils (%) (Auto) 2 0-10 % Basophils (%) (Auto) 1 0-10 % Neutrophils # (Auto) 5.3 1.8-7.8 10^3/uL Lymphocytes # (Auto) 3.3 1.0-4.0 10^3/uL Monocytes # (Auto) 0.8 0.0-1.0 10^3/uL Eosinophils # (Auto) 0.2 0.0-0.3 10^3/uL Basophils # (Auto) 0.1 0.0-0.1 10^3/uL Immature Granulocyte # (Auto) 0.0 0.0-0.1 10^3/uL Prothrombin Time 13.5 12.2-14.7 SEC INR Comment 1.0 0.8-1.4 Activated Partial Thromboplast Time 33 24-35 SEC Sodium Level 134 L 135-145 MMOL/L Potassium Level 3.4 L 3.6-5.0 MMOL/L Chloride Level 99 98-107 MMOL/L Carbon Dioxide Level 24 21-32 MMOL/L Anion Gap 11 5-14 MMOL/L Blood Urea Nitrogen 7 7-18 MG/DL Creatinine 1.09 0.60-1.30 MG/DL Estimat Glomerular Filtration Rate 89 BUN/Creatinine Ratio 6 Glucose Level 129 H 70-105 MG/DL Calcium Level 8.5 8.5-10.1 MG/DL Corrected Calcium 8.8 8.5-10.1 MG/DL Magnesium Level 2.0 1.6-2.4 MG/DL Total Bilirubin 0.4 0.1-1.0 MG/DL Aspartate Amino Transf (AST/SGOT) 31 5-34 U/L Alanine Aminotransferase (ALT/SGPT) 48 0-55 U/L Alkaline Phosphatase 83 40-136 U/L Myoglobin 54.5 10.0-92.0 NG/ML Troponin I < 0.028 < 0.028 <0.028 NG/ML Total Protein 7.1 6.4-8.2 GM/DL Albumin 3.6 3.2-4.5 GM/DL (STRICKLAND,BJORN L DO) Vital Signs/I&O 04/23/23 04:07 Temp 36.8 Pulse 93 Resp 22 B/P (MAP) 148/109 (122) Pulse Ox 98 O2 Delivery Room Air (STRICKLAND,BJORN L DO) Blood Pressure Mean: 122 Progress Progress Note #1: Time: 04:34 Progress Note I accompanied patient to the exam room as he was triaged. He was noted to be ambulating without difficulty with normal gait. He was interviewed and examined. contributed to the interview. Medications were reviewed. No neurologic deficits were noted during the assessment. Stroke activation was therefore not paged. His symptoms could be considered a chest pain equivalent with discomfort radiating into the neck and left arm. Chest pain panel was ordered. CT of the head was also ordered. Further evaluation and treatment will be pending results of the studies. Symptoms have been improving. Progress Note #2: Time: 05:[address] head was viewed by me. There were no acute abnormalities by my interpretation. I appreciated no masses or hemorrhages. Sinuses appeared clear. Labs have been reviewed and interpreted by me. CBC was unremarkable. CMP was notable only for some minor abnormalities including slightly low potass ium at 3.4 and mildly elevated glucose of 129. Magnesium was normal. Troponin was negative. Chest x-ray was unremarkable by my interpretation when compared with prior. Further work-up will be pursued with CT angiogram of the head and neck. Progress Note #3: Time: 06:[address] angiogram of head and neck is pending. Patient has minimal headache at this time and is otherwise feeling fine. He has not had any chest pain this morning but notes some intermittent brief episodes of chest pain in the recent past. He reports having had a stress test performed at this facility in the recent past. In reviewing his chart, I do not see any stress test reports. A serial troponin ordered for 4 hours after onset of symptoms which would be 0700 is pending. Report has been given to Dr. Strickland for shift change and care is being transitione d at this time. (DIEGO COTO MD) Progress Note : Progress Note Patient's care was assumed from Dr. Coto at shift change. Patient had CTA results pending along with a second troponin. Both of those were reviewed by me and were negative with final interpretation per radiology report. Patient's previous labs and imaging was reviewed. Patient has no acute findings. I did review multiple causes of his potential symptoms. Patient did have some concerns that he "quits breathing" and has to be awoke at night. I did have a long discussion with him regarding the need to be evaluated for obstructive sleep apnea. Patient is stable and discharged home. (BJORN STRICKLAND DO) Initial ECG Impression Date: Apr 23, 2023 Initial ECG Impression Time: 04:25 Initial ECG Rate: 85 Initial ECG Rhythm: Normal Sinus Initial ECG Intervals: Normal Comment Normal sinus rhythm with no ST elevation or depression. Significant abnormal intervals or axis deviation. (DIEGO COTO MD) Diagnostic Imaging Diagonstic Imaging: Xray Plain Films/CT/US/NM/MRI: chest Comments Chest x-ray viewed by me. Report not yet available. No acute abnormalities appreciated when compared with prior. Diagonstic Imaging: CT Plain Films/CT/US/NM/MRI: head Comments Noncontrast CT head was viewed by me. No acute abnormalities were appreciated by my interpretation. [facility] report was also reviewed and likewise revealed no acute abnormalities. Diagonstic Imaging: CT Plain Films/CT/US/NM/MRI: other (CTA head and neck) Comments NAME: DANIEL[facility] REC#: [id number] PT STATUS: DEP ER : 1985 PHYSICIAN: DIEGO COTO MD ADMIT DATE: 04/23/23/ER Signed Date of Exam:04/23/23 CT ANGIO HEAD/NECK PROCEDURE: CT angiography of the head and CT angiography of the neck with and without contrast. TECHNIQUE: Contiguous noncontrast images were obtained from the skull base through the vertex. After intravenous contrast administration, helical CT angiography of the neck was performed. Source data was reformatted into 3D MIP projections. Delayed post contrast acquisition was also obtained. Auto Exposure Controls were utilized during the CT exam to meet ALARA standards for radiation dose reduction. INDICATION: 38-year-old male, migraine headache. COMPARISON: None FINDINGS: The vessels overall are somewhat small in caliber. Additionally, there is limited contrast bolus present. This does limit overall assessment. CTA NECK: Aorta: The aortic arch is incompletely imaged. Grossly normal branching pattern. Brachycephalic trunk patent. Right Common/Internal/External Carotid Artery: Patent and without significant stenosis. Left Common/Internal/External Carotid Artery: Patent and without significant stenosis. Vertebral arteries: Codominant. Patent and without significant stenosis. Non-vascular: Thyroid gland is appear to be at least mildly enlarged. Prominent in number but what appear to be not largely non-pathologically enlarged cervical lymph nodes. Patient is a dentulous. 5 mm nodule posterior left lung apex. Cervical spine unremarkable. CTA HEAD: Anterior Circulation: Trace calcifications of the intracranial ICAs but appear patent. The bilateral middle cerebral arteries are patent and without stenosis. The anterior cerebral arteries are patent and without stenosis. Posterior Circulation: The bilateral intracranial segments of the vertebral arteries are patent. The basilar artery is patent and without stenosis. The posterior cerebral arteries are patent. POST CONTRAST HEAD: Dural venous system with normal enhancement. No concerning enhancement on delayed post-contrast imaging. IMPRESSION: 1. Negative CTA of the head. 2. Negative CTA of the neck. 3. The arteries of the head and neck are uniformly small in caliber. 4. Small, left upper lobe pulmonary nodule. Dictated by: Dictated on workstation # [id number] Dict: 04/23/23 0637 Trans: 04/23/23 1023 DO [id number] Interpreted by: CORINA SUNG DO Electronically signed by: CORINA SUNG DO 04/23/23 1023 (DIEGO COTO MD) Departure Impression Primary Impression: Acute headache Qualified Codes: R51.9 - Headache, unspecified Additional Impressions: Disequilibrium Paresthesia Chest pain Qualified Codes: R07.9 - Chest pain, unspecified Disposition: 01 HOME, SELF-CARE Condition: Stable Departure-Patient Inst. Decision time for Depature: 06:06 (DIEGO COTO MD) Referrals: BEATRICE FISHER DO (PCP/Family) Primary Care Physician Patient Instructions: Chest Pain, Adult ED, Obstructive Sleep Apnea, Adult (DC), Paresthesia (DC) Add. Discharge Instructions: Resume taking your usual home medications. Follow-up with your primary care provider soon as possible. Please call today to make an appointment. At your follow-up, discuss further evaluation for your symptoms. Possible follow-up studies may include a stress test for evaluation of your chest pain. No stress test report was found in your medical record at [facility] in [place]. Also inquire about testing for sleep apnea. Another possible cause for some of your symptoms could be spinal cord or nerve impingement in your neck. Further evaluation for these problems could be pursued with MRI. You may discuss appropriateness of MRI with your primary care provider as well. Return to the ER if you have worsening symptoms including repeated episodes of chest pain. Return to the emergency room immediately if you develop acute symptoms of stroke which could include sudden vision change, difficulty understanding or producing speech, weakness of any part of the body, confusion, loss of balance, or any other neurologic deficit. All discharge instructions reviewed with patient and/or family. Voiced understanding. Copy Copies To 1: BEATRICE FISHER JOSHUA T MD Apr 23, 2023 04:36 BJORN STRICKLAND DO Apr 23, 2023 07:48
[2023-04-23 04:45] LABS: BASOPHILS # (AUTO) 0.1 10^3/uL (0.0-0.1); BASOPHILS % (AUTO) 1 % (0-10); EOSINOPHILS # (AUTO) 0.2 10^3/uL (0.0-0.3); EOSINOPHILS % (AUTO) 2 % (0-10); HEMATOCRIT 47 % (40-54); HEMOGLOBIN 15.7 g/dL (13.3-17.7); LYMPHOCYTES # (AUTO) 3.3 10^3/uL (1.0-4.0); LYMPHOCYTES % (AUTO) 35 % (12-44); MEAN CORPUSCULAR HEMOGLOBIN 29 pg (25-34); MEAN CORPUSCULAR HGB CONC 33 g/dL (32-36); MEAN CORPUSCULAR VOLUME 87 fL (80-99); MONOCYTES # (AUTO) 0.8 10^3/uL (0.0-1.0); MONOCYTES % (AUTO) 8 % (0-12); NEUTROPHILS # (AUTO) 5.3 10^3/uL (1.8-7.8); NEUTROPHILS % (AUTO) 55 % (42-75); PLATELET COUNT 193 10^3/uL (130-400); WHITE BLOOD COUNT 9.6 10^3/uL (4.3-11.0)
[2023-04-23 04:58] LABS: ALBUMIN 3.6 GM/DL (3.2-4.5); CHLORIDE 99 MMOL/L (98-107); POTASSIUM 3.4 MMOL/L (3.6-5.0); SODIUM 134 MMOL/L (135-145)
[2023-04-23 04:59] LABS: CALCIUM 8.5 MG/DL (8.5-10.1); PROTHROMBIN TIME PATIENT 13.5 SEC (12.2-14.7)
[2023-04-23 05:00] LABS: GLUCOSE 129 MG/DL (70-105); TOTAL PROTEIN 7.1 GM/DL (6.4-8.2)
[2023-04-23 05:01] LABS: CARBON DIOXIDE 24 MMOL/L (21-32)
[2023-04-23 05:02] LABS: BILIRUBIN,TOTAL 0.4 MG/DL (0.1-1.0)
[2023-04-23 05:04] LABS: ALKALINE PHOSPHATASE 83 U/L (40-136); CREATININE SERUM 1.09 MG/DL (0.60-1.30); GFR ESTIMATED 89
[2023-04-23 05:05] LABS: BUN/CREATININE RATIO 6
[2023-04-23 05:07] LABS: ALANINE AMINOTRANSFERASE 48 U/L (0-55)
--- NOTE | 2023-04-23 05:59 | Diagnostic Imaging Report ---
INDICATION: Chest pain migraine headache TECHNIQUE: Single view chest 4:45 AM CORRELATION STUDY: 08/13/2022 FINDINGS: The heart size, mediastinal configuration and pulmonary vascularity are within normal limits. The lungs are clear with no consolidating infiltrate. There is no significant effusion or pneumothorax. IMPRESSION: 1. Generally stable single view chest demonstrates no significant interval change. Dictated by: Dictated on workstation # [id number]
--- NOTE | 2023-04-23 06:25 | Diagnostic Imaging Report ---
PROCEDURE: CT head wo r/o stroke. TECHNIQUE: Multiple contiguous axial images were obtained through the brain without the use of intravenous contrast. Auto Exposure Controls were utilized during the CT exam to meet ALARA standards for radiation dose reduction. INDICATION: 38-year-old male, migraine headache. CORRELATION: None FINDINGS: There is no midline shift or mass effect. The ventricles and sulci are unremarkable. No evidence for acute intracranial hemorrhage, abnormal extra-axial fluid collections or cerebral edema is present. The basilar cisterns are unremarkable. The bony calvarium is intact. The visualized paranasal sinuses and mastoid air cells are clear. IMPRESSION: Negative appearing noncontrast CT of the head. Initial report was provided by [facility]. Dictated by: Dictated on workstation # [id number]
--- NOTE | 2023-04-23 07:10 | Diagnostic Imaging Report ---
PROCEDURE: CT angiography of the head and CT angiography of the neck with and without contrast. TECHNIQUE: Contiguous noncontrast images were obtained from the skull base through the vertex. After intravenous contrast administration, helical CT angiography of the neck was performed. Source data was reformatted into 3D MIP projections. Delayed post contrast acquisition was also obtained. Auto Exposure Controls were utilized during the CT exam to meet ALARA standards for radiation dose reduction. INDICATION: 38-year-old male, migraine headache. COMPARISON: None FINDINGS: The vessels overall are somewhat small in caliber. Additionally, there is limited contrast bolus present. This does limit overall assessment. CTA NECK: Aorta: The aortic arch is incompletely imaged. Grossly normal branching pattern. Brachycephalic trunk patent. Right Common/Internal/External Carotid Artery: Patent and without significant stenosis. Left Common/Internal/External Carotid Artery: Patent and without significant stenosis. Vertebral arteries: Codominant. Patent and without significant stenosis. Non-vascular: Thyroid gland is appear to be at least mildly enlarged. Prominent in number but what appear to be not largely non-pathologically enlarged cervical lymph nodes. Patient is a dentulous. 5 mm nodule posterior left lung apex. Cervical spine unremarkable. CTA HEAD: Anterior Circulation: Trace calcifications of the intracranial ICAs but appear patent. The bilateral middle cerebral arteries are patent and without stenosis. The anterior cerebral arteries are patent and without stenosis. Posterior Circulation: The bilateral intracranial segments of the vertebral arteries are patent. The basilar artery is patent and without stenosis. The posterior cerebral arteries are patent. POST CONTRAST HEAD: Dural venous system with normal enhancement. No concerning enhancement on delayed post-contrast imaging. IMPRESSION: 1. Negative CTA of the head. 2. Negative CTA of the neck. 3. The arteries of the head and neck are uniformly small in caliber. 4. Small, left upper lobe pulmonary nodule. Dictated by: Dictated on workstation # [id number]
[2023-04-23 08:05] VITALS: BP 113/86
== END 2023-04-23 08:05 | disposition home or self-care (01) ==
LOC: EDUNIT# 03:34 → ER 03:37
DX: E87.8 Other disorders of electrolyte and fluid balance, not elsewhere classified (principal); R51.9 Headache, unspecified; R20.2 Paresthesia of skin; R07.9 Chest pain, unspecified; F17.290 Nicotine dependence, other tobacco product, uncomplicated
CPT/HCPCS: 36415; 70450; 70496; 70498; 71045; 80053; 83735; 83874; 84484; 85025; 85610; 85730; 93005; 93041